=== PATIENT | male | born 1960 | race Caucasian/White ===

== ENCOUNTER 2020-12-25 14:23 | Emergency (ER) | payer OTHER ==
[~2020-12-25] VITALS: Ht 177.8 cm; Wt 89.9 kg
[2020-12-25] MEDS ORDERED: IOHEXOL 300 MG/ML 75 ML VIAL. IV ONE (15:00)
[2020-12-25 15:05] LABS: BASO % 0 % (0-3); EOS % 1 % (0-3); HEMATOCRIT 47.4 % (39.0-53.0); HEMOGLOBIN 16.1 g/dL (13.0-17.5); LYMPH # 1.5 x10^3/uL (1.0-4.8); LYMPH % 23 % (24-48); MEAN CORPUSCULAR HEMOGLOBIN 32 pg (25-35); MEAN CORPUSCULAR HGB CONC 34 g/dL (31-37); MEAN CORPUSCULAR VOLUME 93 fL (79-100); MONO # 0.5 x10^3/uL (0.0-1.1); MONO % 8 % (0-9); NEUT # 4.3 x10^3uL (1.8-7.7); NEUT % 68 % (31-73); PLATELET COUNT 178 x10^3/uL (140-400); RED BLOOD COUNT 5.08 x10^6/uL (4.30-5.70); RED CELL DISTRIBUTION WIDTH 12.5 % (11.5-14.5); WHITE BLOOD COUNT 6.4 x10^3/uL (4.0-11.0)
--- NOTE | 2020-12-25 15:07 | PHYS DOC ---
Past History Past Medical History: GERD, IBS Past Surgical History: Cholecystectomy Additional Past Surgical Histo: Gi. Hernia Alcohol Use: Rarely General Adult EDM: Chief Complaint: ABDOMINAL PAIN HPI: HPI: 60-year-old male presents with left lower quadrant abdominal pain. The patient has had pain for 3 days now. It has been getting worse. He has a history of diverticulitis which led to complications and partial bowel resection. He is very nervous that this could be diverticulitis again. The pain is similar but not as severe as his previous episode which required surgery. He has had a small bowel movement today. Denies diarrhea. He does have intermittent issues with constipation. He has taken a couple of laxatives this week. He denies nausea, vomiting, fever or chills. Review of Systems: Review of Systems: Constitutional: Denies fever or chills Eyes: Denies change in visual acuity HENT: Denies nasal congestion or sore throat Respiratory: Denies cough or shortness of breath Cardiovascular: Denies chest pain or edema GI: Left lower quadrant abdominal pain. Denies nausea, vomiting, bloody stools or diarrhea : Denies dysuria Musculoskeletal: Denies back pain or joint pain Integument: Denies rash Neurologic: Denies headache, focal weakness or sensory changes Endocrine: Denies polyuria or polydipsia Lymphatic: Denies swollen glands Psychiatric: Denies depression or anxiety Current Medications: Current Meds: Current Medications Medications (Trade) Dose Ordered Sig/[place] Start Time Stop Time Status Last Admin Dose Admin Iohexol (Omnipaque 300 Mg/ml) 75 ml 1X ONCE 12/25/20 15:00 12/25/20 15:01 OK Allergies: Allergies: Allergies Coded Allergies Type Severity Reaction Last Updated Verified No Known Drug Allergies 12/25/20 No Physical Exam: PE: Constitutional: Well developed, well nourished, no acute distress, non-toxic appearance. [] HENT: Normocephalic, atraumatic, bilateral external ears normal, oropharynx mo ist, no oral exudates, nose normal. [] Eyes: PERRLA, EOMI, conjunctiva normal, no discharge. [] Neck: Normal range of motion, no tenderness, supple, no stridor. [] Cardiovascular:Heart rate regular rhythm, no murmur [] Lungs & Thorax: Bilateral breath sounds clear to auscultation [] Abdomen: Bowel sounds normal, soft, lower abdominal tenderness, no masses, no pulsatile masses. [] Skin: Warm, dry, no erythema, no rash. [] Back: No tenderness, no CVA tenderness. [] Extremities: No tenderness, no cyanosis, no clubbing, ROM intact, no edema. [] Neurologic: Alert and oriented X 3, normal motor function, normal sensory function, no focal deficits noted. [] Psychologic: Affect normal, judgement normal, mood concerned. [] Current Patient Data: Vital Signs: Vital Signs Date Time Temp Pulse Resp B/P (MAP) Pulse Ox O2 Delivery O2 Flow Rate FiO2 12/25/20 14:35 97.8 58 16 165/80 (108) 97 Room Air EKG: EKG: [] Radiology/Procedures: Radiology/Procedures: [] Impressions: CT ABDOMEN+PELVIS W dated 12/25/2020 3:32 PM Indication:Reason: LLQ abdominal pain - diabetic / Spl. Instructions: / History: Comparison: No comparison is available. Technique: CT images were performed through the abdomen and pelvis using an infusion of 75 mL Omnipaque 300. No oral contrast was given. One or more of the following individualized dose reduction techniques were utilized for this examination: 1. Automated exposure control 2. Adjustment of the mA and/or kV according to patient size 3. Use of iterative reconstruction technique Findings: The lung bases are clear. The liver and spleen are homogeneous in density and normal in configuration. Both kidneys enhance with contrast. Cysts are present bilaterally. There is no apparent solid mass or obstruction. There is a 1 mm calcification inferiorly in the left kidney. The adrenal glands are not enlarged. The pancreas appears normal. No retroperitoneal or mesenteric adenopathy is seen. There is no apparent abdominal mass or clearcut inflammatory process. Evaluation of the GI tract is somewhat limited by lack of oral contrast and lack of distention. A normal appendix is seen inferior to the cecum. Images through the pelvis show no distal ureteral stone or obstruction. The bladder appears normal. No pelvic or inguinal adenopathy is seen. There is a small fat-containing left inguinal hernia. There is no apparent pelvic mass or inflammatory process. There is evidence of previous bowel anastomosis in the sigmoid colon. There is no evidence of diverticulitis at this time. IMPRESSION: No identified acute abnormality. Electronically signed by: Jony Gruber Jr., MD (12/25/2020 4:06 PM) [id number] DICTATED AND SIGNED BY: JONY GRUBER Jr, MD DATE: 12/25/20 1558 CC: CATRACHITA WILLIS DO; CARITO DICKEY MD ~MTH0 0 Heart Score: C/O Chest Pain: N/A Risk Factors: Risk Factors: DM, Current or recent (<one month) smoker, HTN, HLP, family history of CAD, obesity. Risk Scores: Score 0 - 3: 2.5% MACE over next 6 weeks - Discharge Home Score 4 - 6: 20.3% MACE over next 6 weeks - Admit for Clinical Observation Score 7 - 10: 72.7% MACE over next 6 weeks - Early Invasive Strategies Course & Med Decision Making: Course & Med Decision Making Pertinent Labs and Imaging studies reviewed. (See chart for details) The patient's labs are unremarkable. The CT of the abdomen and pelvis is neg ative for acute findings. See official read for more details. I am not sure why the patient is having discomfort. This could just be a viral illness. Could be referred pain from heartburn. It does not appear to be life- threatening at this time. I did a urinalysis and is negative for infection. He is spilling glucose and ketones. I spoke with the patient and he is a nondiabe tic. He is on appropriate medications. Repeat fingerstick was within normal limits less than 100. I am going to give him 10 days of Augmentin though I am not certain what the source of infection would be. It could be low-level diverticulitis not obvious on CT. I believe it is worthwhile risk-benefit at this time. Patient is stable for discharge. [] Dragon Disclaimer: Dragon Disclaimer: This electronic medical record was generated, in whole or in part, using a voice recognition dictation system. Departure Departure: Impression: Primary Impression: Left lower quadrant abdominal pain Disposition: HOME / SELF CARE / HOMELESS Condition: STABLE Referrals: CARITO DICKEY MD (PCP) Patient Instructions: Abdominal Pain, [id number] Scripts Ondansetron (ONDANSETRON ODT) 4 Mg Tab.rapdis 1 TAB PO PRN Q6-8HRS PRN for VOMITING, #16 TAB Prov: CATRACHITA WILLIS DO 12/25/20 Amoxicillin/Potassium Clav (AUGMENTIN 875-125 TABLET) 1 Each Tablet 1 TAB PO BID for infection for 10 Days, #20 TAB 0 Refills Prov: CATRACHITA WILLIS DO 12/25/20 CATRACHITA WILLIS DO December 25, 2020 15:07
[2020-12-25 15:09] LABS: CALCIUM 8.9 mg/dL (8.5-10.1); CREATININE 0.9 mg/dL (0.7-1.3); GFR 85.8; POTASSIUM 4.1 mmol/L (3.5-5.1)
[2020-12-25 15:15] LABS: ALBUMIN 4.5 g/dL (3.4-5.0); ALBUMIN/GLOBULIN RATIO 1.2 (1.0-1.7); TOTAL BILIRUBIN 1.2 mg/dL (0.2-1.0); TOTAL PROTEIN 8.2 g/dL (6.4-8.2)
--- NOTE | 2020-12-25 16:09 | RAD ---
CT ABDOMEN+PELVIS W dated 12/25/2020 3:32 PM Indication:Reason: LLQ abdominal pain - diabetic / Spl. Instructions: / History: Comparison: No comparison is available. Technique: CT images were performed through the abdomen and pelvis using an infusion of 75 mL Omnipaq ue 300. No oral contrast was given. One or more of the following individualized dose reduction techniques were utilized for this examinat ion: 1. Automated exposure control 2. Adjustment of the mA and/or kV according to patient size 3. Use of iterative reconstruction technique Findings: The lung bases are clear. The liver and spleen are homogeneous in density and normal in configuration . Both kidneys enhance with contrast. Cysts are present bilaterally. There is no apparent solid mass or obstruction. There is a 1 mm calcification inferiorly in the left kidney. The adrenal glands are n ot enlarged. The pancreas appears normal. No retroperitoneal or mesenteric adenopathy is seen. There is no apparent abdominal mass or clearcut inflammatory process. Evaluation of the GI tract is somewha t limited by lack of oral contrast and lack of distention. A normal appendix is seen inferior to the cecum. Images through the pelvis show no distal ureteral stone or obstruction. The bladder appears normal. N o pelvic or inguinal adenopathy is seen. There is a small fat-containing left inguinal hernia. There is no apparent pelvic mass or inflammatory process. There is evidence of previous bowel anastomosis i n the sigmoid colon. There is no evidence of diverticulitis at this time. IMPRESSION: No identified acute abnormality. Electronically signed by: Kendall Bagn Jr., MD (12/25/2020 4:06 PM) [id number]
[2020-12-25 16:49] LABS: BILIRUBIN,URINE NEG (NEG); CLARITY,URINE CLEAR; COLOR,URINE YELLOW; GLUCOSE,URINE >=1000 mg/dL (NEG)
[2020-12-25 16:50] LABS: BACTERIA,URINE 0 /HPF (0-FEW); NITRITE,URINE NEG (NEG); RBC,URINE 0 /HPF (0-2); SQUAMOUS EPITHELIAL CELL,UR OCC /LPF; UROBILINOGEN,URINE 0.2 mg/dL (0.2 mg/dL); WBC,URINE 0 /HPF (0-4)
[2020-12-25] MEDS ORDERED: ONDANSETRON PF 4 MG/2 ML VIAL. IVP ONE (17:00)
[2020-12-25 17:25] VITALS: BP 137/75
[2020-12-25] MEDS ORDERED: AMOX1TAB61 PO (17:38)
[2020-12-25] MEDS ORDERED: ONDA4TAB12 PO (17:38)
== END 2020-12-25 17:50 | disposition home or self-care (01) ==
LOC: ER 14:23
DX: R10.32 Left lower quadrant pain (principal); K21.9 Gastro-esophageal reflux disease without esophagitis; Z90.49 Acquired absence of other specified parts of digestive tract
CPT/HCPCS: 36415; 74177; 80053; 81001; 82947; 85025; 96374; 99285; J2405; Q9967